=== PATIENT | female | born 1980 | race Caucasian/White ===

== ENCOUNTER → 2024-10-03 | Outpatient (CLI) | payer BC ==
[2024-10-03 08:38] LABS: BASOPHILS % 0.6 % (0.0-2.0); EOSINOPHILS % 2.4 % (0.0-5.0); HEMATOCRIT. 36.8 % (36.0-48.0); HEMOGLOBIN. 12.2 g/dL (12.0-16.0); LYMPHOCYTES % 26.9 % (20.0-50.0); MEAN PLATELET VOLUME 8.1 fl (7.4-10.4); MONOCYTES % 5.0 % (2.0-8.0); NEUTROPHILS % 65.1 % (40.0-76.0); PLATELET 379 x1000/uL (130-400); RED BLOOD CELL COUNT 4.33 mill/uL (4.2-5.4); RED CELL DISTRIBUTION WIDTH 13.8 % (11.6-14.6)
[2024-10-03 08:47] LABS: CLARITY URINE CLEAR (CLEAR); COLOR URINE YELLOW (YELLOW); GLUCOSE URINE NEGATIVE (NEGATIVE); KETONES URINE NEGATIVE (NEGATIVE); LEUKOCYTE ESTERASE URINE TRACE (NEGATIVE); NITRITE URINE NEGATIVE (NEGATIVE); OCCULT BLOOD URINE NEGATIVE (NEGATIVE); PH URINE 5.0 (4.5-8.0); PROTEIN URINE NEGATIVE (NEGATIVE); SPECIFIC GRAVITY URINE 1.026 (1.005-1.030); UROBILINOGEN URINE 0.2 E.U./dL (0.2-1.0)
[2024-10-03 09:02] LABS: CREATININE 0.8 mg/dL (0.6-1.0); TRIGLYCERIDE 68 mg/dL (0-150); UREA NITROGEN BLOOD 12 mg/dL (9-23)
[2024-10-03 09:03] LABS: LDL CHOLESTEROL 89 mg/dL (5-100)
[2024-10-03 09:04] LABS: ASPARTATE AMINOTRANSFERASE 15 IU/L (<34); BILIRUBIN TOTAL 0.4 mg/dL (0.1-1.0); PROTEIN TOTAL 7.4 g/dL (6.0-8.3)
[2024-10-03 09:15] LABS: TRIOIODOTHYRONINE TOTAL 1.66 ng/ml (0.60-1.81)
[2024-10-03 09:26] LABS: ERYTHROCYTE SEDIMENTATION RATE 21 mm/hr (0-20)
[2024-10-03 09:34] LABS: BACTERIA URINE 4+; SQUAMOUS EPITHELIAL CELL URINE 2+ /lpf (RARE/1+)
[2024-10-03 09:35] LABS: RBC URINE 0-2 /hpf (0-2); WBC URINE 0-2 /hpf (0-2)
[2024-10-03 09:50] LABS: C REACTIVE PROTEIN QUANT 4.7 mg/L (0.0-3.0)
[2024-10-04 09:11] LABS: ESTRADIOL 47.3 pg/mL (.); HEPATITIS C AB Non Reactive (Non Reactive); LUTEINIZING HORMONE 4.6 mIU/mL (.); PROGESTERONE 0.3 ng/mL (.); PROLACTIN 55.8 ng/mL (4.8-33.4); T4 THYROXINE 6.7 ug/dL (4.5-12.0); VITAMIN D 25-OH 40.4 ng/mL (30.0-100.0)
== END | disposition home or self-care (01) ==
LOC: LAB 07:47
PROVIDERS: ATTEND Internal Medicine
DX: N39.0 Urinary tract infection, site not specified (principal); E55.9 Vitamin D deficiency, unspecified; R79.89 Other specified abnormal findings of blood chemistry; Z13.6 Encounter for screening for cardiovascular disorders; Z00.00 Encounter for general adult medical examination without abnormal findings; Z79.899 Other long term (current) drug therapy
CPT/HCPCS: 36415; 80053; 80061; 81001; 81003; 82306; 82626; 82670; 82728; 83002; 83036; 83540; 83550; 83695; 84144; 84146; 84403; 84436; 84443; 84480; 85025; 85651; 86140; 86592; 86803; 87340